=== PATIENT | female | born 1970 | race Caucasian/White ===

== ENCOUNTER → 2016-09-01 | Outpatient (CLI) | payer BC ==
[~2016-09-01] MED LIST: CEFD300C3 PO; DOXY100C2 PO; HYOS0.1217; OMEP20CA12 PO; ONDA-42 SL; PHEN-523 PO; PRD20T PO; SCR1T1 PO
--- NOTE | 2016-09-01 07:53 | Diagnostic Imaging Report ---
PROCEDURE: US abdomen complete. INDICATION: Abdominal pain TECHNIQUE: Multiple real-time anderson scale sonographic images of the abdomen. CORRELATION STUDY: None FINDINGS: LIVER: 18 cm in length. Normal echotexture. GALLBLADDER: Absent. COMMON BILE DUCT: Normal at 4 mm. PANCREAS: Largely obscured by overlying bowel gas. SPLEEN: Unremarkable. ABDOMINAL AORTA: Unremarkable, nonaneurysmal. INFERIOR VENA CAVA: Limited in visualization. RIGHT KIDNEY: 10.9 cm. Unremarkable. LEFT KIDNEY: 12.8 cm. Unremarkable. ASCITES: None. IMPRESSION: 1. Unremarkable-appearing abdominal ultrasound evaluation. Postcholecystectomy changes. Dictated by: Dictated on workstation # [id number]
== END ==
LOC: RAD 06:48
PROVIDERS: ATTEND Nurse Practitioner
DX: R10.11 Right upper quadrant pain (principal)
CPT/HCPCS: 76700

== ENCOUNTER → 2016-10-10 | Outpatient (CLI) | payer BC ==
[~2016-10-10] MED LIST changes: +CATHETER FLUSH 10 ML SYR IV PRN; +IOHEXOL 350 MG/ML 100 ML (OMNIPAQUE 350) VIAL IV ONE; +NS 100 ML (IVPB) BAG IV ONE
--- NOTE | 2016-10-10 11:48 | Diagnostic Imaging Report ---
PROCEDURE: CT abdomen with and without contrast. TECHNIQUE: Multiple contiguous axial CT images of the abdomen were obtained prior to and after intravenous administration of iodinated contrast. INDICATION: Right upper quadrant pain. 100 mL of Omnipaque 350 is administered intravenously. FINDINGS: The lung bases appear clear. The liver, the spleen, the pancreas, and adrenal glands appear unremarkable. Cholecystectomy clips are from seen. The kidneys and proximal ureters demonstrate no stones seen on the unenhanced exam. After contrast administration, there is symmetric parenchymal enhancement and excretion in the renal collecting system. The abdominal aorta is normal in caliber. No para-aortic significantly enlarged lymph nodes seen. The appendix appear normal. No fluid collection or free fluid is seen in the abdomen. The osseous structures appear grossly unremarkable. IMPRESSION: Unremarkable exam. Dictated by: Dictated on workstation # [id number]
== END ==
LOC: RAD 10:09
PROVIDERS: ATTEND Family Medicine
DX: R10.11 Right upper quadrant pain (principal); Z90.49 Acquired absence of other specified parts of digestive tract
CPT/HCPCS: 74170

== ENCOUNTER → 2017-05-28 | Outpatient (CLI) | payer BC ==
[~2017-05-28] MED LIST changes: -CATHETER FLUSH 10 ML SYR IV PRN; -IOHEXOL 350 MG/ML 100 ML (OMNIPAQUE 350) VIAL IV ONE; -NS 100 ML (IVPB) BAG IV ONE
== END ==
LOC: RAD 11:30
PROVIDERS: ATTEND Obstetrics & Gynecology
DX: Z12.31 Encounter for screening mammogram for malignant neoplasm of breast (principal)
CPT/HCPCS: 77067

== ENCOUNTER → 2018-11-15 | Outpatient (CLI) | payer BC ==
--- NOTE | 2018-11-16 13:10 | Diagnostic Imaging Report ---
INDICATION: Routine screening. COMPARISON: 05/28/2017 and 10/22/2015. TECHNIQUE: 2D and 3D bilateral screening mammography was performed with CAD. FINDINGS: Scattered fibroglandular densities are identified bilaterally. Multiple benign-appearing calcifications are identified in the right breast, primarily in the retroareolar region. No dominant mass or malignant appearing microcalcifications are seen. The axillae are unremarkable. IMPRESSION: No mammographic features suspicious for malignancy are identified. ACR BI-RADS Category 2: Benign findings. Result letter will be mailed to the patient. Note: At least 10% of breast cancer is not imaged by mammography. Dictated by: Dictated on workstation # [id number]
== END ==
LOC: RAD 15:09
PROVIDERS: ATTEND Obstetrics & Gynecology
DX: Z12.31 Encounter for screening mammogram for malignant neoplasm of breast (principal)
CPT/HCPCS: 77067

== ENCOUNTER 2019-05-30 10:15 | Outpatient (CLI) | payer BC ==
[~2019-05-30] VITALS: Ht 165 cm; Wt 100.0 kg
[~2019-05-30 10:15] MED LIST changes: +AMIT25TA9 PO; +LORA10TA76 PO; +PROP20TA5 PO
== END 2019-05-30 10:56 | disposition home or self-care (01) ==
LOC: PREOP 10:15
PROVIDERS: ATTEND Internal Medicine
DX: Z01.818 Encounter for other preprocedural examination (principal)

== ENCOUNTER → 2019-12-14 | Outpatient (CLI) | payer BC ==
--- NOTE | 2019-12-14 13:42 | Diagnostic Imaging Report ---
INDICATION: Routine screening. Comparison is made with prior mammogram 11/15/2018 and 05/28/2017. 2-D and 3-D bilateral screening mammography was performed with CAD. Scattered fibroglandular densities are identified bilaterally. There are benign calcifications in both breasts. The overall parenchymal pattern is stable. No dominant mass or malignant appearing microcalcifications are seen. Axillae are unremarkable. IMPRESSION: BI-RADS Category 2 No mammographic features suspicious for malignancy are identified. ACR BI-RADS Category 2: Benign findings. Result letter will be mailed to the patient. Note: At least 10% of breast cancer is not imaged by mammography. Dictated by: Dictated on workstation # [id number]
== END ==
LOC: RAD 10:17
PROVIDERS: ATTEND Obstetrics & Gynecology
DX: Z12.31 Encounter for screening mammogram for malignant neoplasm of breast (principal)
CPT/HCPCS: 77063; 77067

== ENCOUNTER → 2021-03-15 | Outpatient (CLI) | payer BC ==
--- NOTE | 2021-03-15 14:21 | Diagnostic Imaging Report ---
Indication: Routine screening. Comparison is made with prior mammogram from 12/14/2019 11/15/2018. 2-D and 3-D bilateral screening mammography was performed with CAD. Scattered fibroglandular densities are identified bilaterally. The overall parenchymal pattern is stable. Bilateral breast calcifications appears stable. No mass or malignant-appearing microcalcifications are seen. Axillae are unremarkable. IMPRESSION: BI-RADS Category 2 No mammographic features suspicious for malignancy are identified. ACR BI-RADS Category 2: Benign findings. Result letter will be mailed to the patient. Note: At least 10% of breast cancer is not imaged by mammography. Dictated by: Dictated on workstation # [id number]
== END ==
LOC: RAD 07:26
PROVIDERS: ATTEND Obstetrics & Gynecology
DX: Z12.31 Encounter for screening mammogram for malignant neoplasm of breast (principal)
CPT/HCPCS: 77063; 77067

== ENCOUNTER 2022-09-03 05:47 | Outpatient (CLI) | payer BC ==
[~2022-09-03] VITALS: Ht 167.7 cm; Wt 106.8 kg
[2022-09-03] MEDS ORDERED: OMEP40CA6 PO (09:18)
[2022-09-03] MEDS ORDERED: PROP40TA5 PO (09:18)
[2022-09-03] MEDS ORDERED: AMLO-250 PO (09:18)
== END 2022-09-03 09:32 | disposition home or self-care (01) ==
LOC: PREOP 05:47
PROVIDERS: ATTEND Internal Medicine
DX: Z01.818 Encounter for other preprocedural examination (principal)

== ENCOUNTER 2022-09-12 07:10 | Day surgery (SDC) | payer BC ==
--- NOTE | 2022-09-03 15:17 | HISTORY AND PHYSICAL ---
DATE OF SERVICE: 09/12/2022 COLONOSCOPY HISTORY AND PHYSICAL HISTORY OF PRESENT ILLNESS: The patient is a 52-year-old white female referred by Dr. Baugh for surveillance colonoscopy. She had undergone her first screening colonoscopy 3 years ago, at which time she had 3 polyps removed. The most significant being adjacent to the ileocecal valve, which was a tubular adenoma. She reports no change in bowel habits. She has noted no bright red blood per rectum, melena. Denies abdominal pain. PAST MEDICAL HISTORY: Significant for cholecystectomy done around 2012, tonsillectomy as a child and arthroscopic right knee evaluation. SOCIAL HISTORY: She is employed with no reported alcohol intake history or past smoking history. FAMILY HISTORY: Parents are live and well. No reported history of GI tract malignancies noted in the family. No history of any polyposis syndromes. REVIEW OF SYSTEMS: CONSTITUTIONAL: The patient denies night sweats, chills, fever, change in weight. CARDIOVASCULAR: The patient denies chest pain, dyspnea on exertion, pedal edema, orthopnea. PULMONARY: The patient denies cough, wheezing or shortness of breath. GASTROINTESTINAL: As noted in the HPI. PHYSICAL EXAMINATION: GENERAL: Reveals a white female, appeared to be in no acute distress. VITAL SIGNS: Blood pressure was 130/88, weight 235 pounds, which is up 14 pounds from last office appointment, a little over 3 years ago. HEENT: Unremarkable. CHEST: Clear to auscultation. CARDIOVASCULAR: Reveals a regular rate and rhythm without murmur, S3, or S4. ABDOMEN: Soft, supple without mass, organomegaly or tenderness. EXTREMITIES: No cyanosis, clubbing or edema. ASSESSMENT: The patient is being set up for surveillance colonoscopy due to past history of colon polyps. See HPI. Prep instructions were given and questions were answered and notation from Dr. Baugh's last visit and electronic medical record were reviewed. I thank you for your referral of this pleasant lady. Job ID: [id number] DocumentID: [id number] Dictated Date: 09/03/2022 14:34:06 Computer Information Systems Professor Date: 09/03/2022 15:15:00 Dictated By: BOBBI BRICENO MD
[~2022-09-12] VITALS: Ht 167.7 cm; Wt 106.8 kg
[~2022-09-12 07:10] MED LIST changes: +AMLO-250 PO; +OMEP40CA6 PO; +PROP40TA5 PO
[2022-09-12] MEDS ORDERED: LACTATED RINGERS 1,000 ML IV STA (07:22)
[2022-09-12 07:27] VITALS: BP 142/73
[2022-09-12] MEDS ORDERED: MIDAZOLAM 2 MG/2 ML (VERSED) VIAL ONE (07:30)
[2022-09-12] MEDS ORDERED: PROPOFOL INJECTION 50 ML IV ONE (07:30)
--- NOTE | 2022-09-12 07:58 | Pre-Op Note & Conscious Sedat ---
Pre-Operative Progress Note Date H&P Reviewed: Sep 12, 2022 Time H&P Reviewed: 07:58 History & Physical: H&P Reviewed, Patient Examed, No changes noted Pre-Op Diagnosis: hx of polyps Moderate Sedation PreProcedure ASA Score 2 Airway Lungs Heart ASA score ASA 1: a normal healthy patient ASA 2: a patient with a mild systemic disease (mid diabetes, controlled hypertension, obesity ASA 3: a patient with a severe systemic disease that limits activity (angina, COPD, prior Myocardial infarction) ASA 4: a patient with an incapacitating disease that is a constant threat to life (CHF, renal failure) ASA 5: a moribund patient not expected to survive 24 hrs. (ruptured aneurysm) ASA 6: a declared brain- patient whose organs are being harvested. For emergent operations, add the letter E after the classification Mallampati Classification Grade 2 Sedation Plan Analgesia, Amnesia, Plan communicated to team members, Discussed options with patient/fam, Discussed risks with patient/fam The patient is an appropriate candidate to undergo the planned procedure, sedation, and anesthesia. The patient immediately re-assessed prior to indication. BOBBI BRICENO MD Sep 12, 2022 07:58
[2022-09-12 08:30] VITALS: BP 97/55
[2022-09-12 08:35] VITALS: BP 100/58
--- NOTE | 2022-09-12 08:35 | Progress Note-Post Operative ---
Post-Procedure Note Physician (s)/Mail Clerk Bills (s) Physician BOBBI BRICENO MD Pre-Procedure Diagnosis Pre-Procedure Diagnosis: hx of polyps Post-Procedure Diagnosis Post-operative diagnosis: Prior to undergoing colonoscopy digital rectal evaluation was performed. Anal suture tone was normal and the perianal reflexes intact. No abnormalities noted on digital inspection anal canal or distal rectal vault. The colonoscope was then inserted into the rectum and under direct visualization advanced to the cecum. The cecum was identified by indication of the ileocecal valve cecal strap and appendiceal orifice. Photographic documentation was obtained. Careful inspection was made as the colonoscope was withdrawn. Quality the prep was good. Findings: 1 prominent perianal skin fold was noted at the 6 o'clock position no evidence for internal or external hemorrhoids were noted. Present in the distal rectum was a 3 mm sessile polyp it was biopsied ablated and submitted for histopathology with no blood loss. The remainder the rectum and sigmoid colon was unremarkable with no evidence of diverticular disease. The descending colon was unremarkable as well. present at the splenic flexure was a 8 mm sessile adenomatous appearing polyp with uniform mucosal features it was photographed and biopsied and ablated with no subsequent blood loss. The transverse colon and hepatic flexure unremarkable. A 3 mm sessile mid a sending polyp was noted and simply biopsied and ablated with no blood loss. The remainder the ascending colon and cecum were unremarkable. A/P 1. 3 polyps removed via hot forceps today the most significant from the splenic flexure as noted above. there was no evidence for recurrence of a previous cauterized polyp adjacent the ileocecal valve. As long as there are no surprises on histopathology report would advocate repeat surveillance colonoscopy in 3 years. No other abnormalities noted on today's colonoscopy under good prep conditions. BOBBI BRICENO MD Sep 12, 2022 08:35
[2022-09-12 09:02] VITALS: BP 100/58
--- NOTE | 2022-09-12 10:20 | Anesthesia-General Post-Op ---
MAC Patient Condition Mental Status/LOC: Same as Preop Cardiovascular: Satisfactory Nausea/Vomiting: Absent Respiratory: Satisfactory Pain: Controlled Complications: Absent Post Op Complications Complications None Follow Up Care/Instructions Patient Instructions None needed. Anesthesiology Discharge Order Discharge Order Patient is doing well, no complaints, stable vital signs, no apparent adverse anesthesia problems. No complications reported per nursing. AINSLEY LEONARD CRNA Sep 12, 2022 10:20
== END 2022-09-12 09:15 | disposition home or self-care (01) ==
LOC: ENDO 07:10
PROVIDERS: ATTEND Internal Medicine
DX: Z12.11 Encounter for screening for malignant neoplasm of colon (principal); D12.2 Benign neoplasm of ascending colon; K63.5 Polyp of colon; K62.1 Rectal polyp
CPT/HCPCS: 84703; 88305